=== PATIENT | female | born 1995 | race Caucasian/White ===

== ENCOUNTER 2022-10-30 15:13 | Emergency (ER) | payer OTHER ==
[~2022-10-30] VITALS: Ht 180.3 cm; Wt 170.0 kg
[2022-10-30 15:17] VITALS: BP 167/98
[2022-10-30] MEDS ORDERED: DESVENLAFAXINE100 M3 PO (16:08)
[2022-10-30] MEDS ORDERED: Adderall Xr 2525 MG PO (16:08)
[2022-10-30] MEDS ORDERED: Lamictal150 MG PO (16:08)
== END 2022-10-30 18:01 | disposition home or self-care (01) ==
LOC: ER 15:13
DX: S91.311A Laceration without foreign body, right foot, initial encounter (principal); Z23 Encounter for immunization; W20.8XXA Other cause of strike by thrown, projected or falling object, initial encounter
CPT/HCPCS: 12002; 90471; 90715; 99282-25